=== PATIENT | female | born 1980 | race Caucasian/White ===

== ENCOUNTER 2016-12-25 01:54 | Emergency (ER) | payer OTHER ==
[~2016-12-25] VITALS: Ht 177.8 cm; Wt 73.6 kg
[2016-12-25] MEDS ORDERED: CHEW500C2 PO (02:08)
[2016-12-25] MEDS ORDERED: MONOTAB PO (02:08)
[2016-12-25] MEDS ORDERED: VITA100L PO (02:08)
[2016-12-25] MEDS ORDERED: MULTTAB57 PO (02:08)
[2016-12-25] MEDS ORDERED: VITA-112 PO (02:08)
[2016-12-25] MEDS ORDERED: NS 1,000 ML IV ONE (02:45)
[2016-12-25] MEDS ORDERED: MORPHINE 4 MG/ML 1ML SYRINGE IV ONE (02:45)
[2016-12-25] MEDS ORDERED: KETOROLAC 30 MG/ML VIAL (J1885) IV ONE (02:45)
[2016-12-25] MEDS ORDERED: ONDANSETRON 4MG/2ML VIAL (J2405) IV ONE (03:00)
[2016-12-25 03:01] LABS: BASO % 0.5 % (0.0-1.0); EOS # 0.1 10^3/uL (0.0-0.50); EOS % 0.9 % (0.0-3.0); IMMATURE GRANULOCYTE % 0.5 % (0-0); LYMPH # 1.1 10^3/uL (1.5-4.5); LYMPH % 12.5 % (24.0-44.0); MEAN CORPUSCULAR HEMOGLOBIN 30.9 pg (27.0-33.0); MEAN CORPUSCULAR HGB CONC 33.5 g/dl (32.0-36.5); MEAN CORPUSCULAR VOLUME 92.2 fl (80.0-96.0); MONO # 0.4 10^3/uL (0.0-0.8); MONO % 4.3 % (0.0-5.0); NEUTROPHILS # 7.2 10^3/uL (1.8-7.7); NEUTROPHILS % 81.3 % (36.0-66.0); PLATELET COUNT, AUTOMATED 255 10^3/uL (150-450); RED CELL DISTRIBUTION WIDTH 12.4 % (11.5-14.5); WHITE BLOOD COUNT 8.8 10^3/uL (4.0-10.0)
[2016-12-25 03:31] LABS: ALBUMIN 3.7 GM/DL (3.2-5.2); ALBUMIN/GLOBULIN RATIO 0.97 (1.00-1.93); ALKALINE PHOSPHATASE 78 U/L (45-117); ALT/SGPT 28 U/L (12-78); ANION GAP 5 MEQ/L (8-16); AST/SGOT 16 U/L (15-37); BILIRUBIN,DIRECT 0.2 MG/DL (0.0-0.2); BILIRUBIN,TOTAL 0.6 MG/DL (0.2-1.0); BLOOD UREA NITROGEN 13 MG/DL (7-18); CALCIUM LEVEL 8.5 MG/DL (8.5-10.1); CARBON DIOXIDE LEVEL 30 MEQ/L (21-32); CHLORIDE LEVEL 102 MEQ/L (98-107); CREATININE FOR GFR 0.76 MG/DL (0.55-1.02); GLOMERULAR FILTRATION RATE > 60.0 (>60); GLUCOSE, FASTING 136 MG/DL (70-105); POTASSIUM SERUM 3.6 MEQ/L (3.5-5.1); SODIUM LEVEL 137 MEQ/L (136-145); TOTAL PROTEIN 7.5 GM/DL (6.4-8.2)
[2016-12-25] MEDS ORDERED: HYDROmorphone HCL 1 MG/ML SYRINGE (J1170) IV ONE (03:45)
[2016-12-25 03:52] LABS: CONTROL LINE HCG INT CTR LINE PRESENT
[2016-12-25] MEDS ORDERED: ISOVUE-370 76% 100ML VIAL (Q9967) As Ordered ONE (04:00)
--- NOTE | 2016-12-25 05:00 | REPUSA ---
CLINICAL HISTORY: Abdominal pain. TECHNIQUE: Multiple axial, sagittal and coronal CT images were obtained through the abdomen and pelvi s after administration of intravenous contrast material. COMMENTS: Scattered mildly enhancing hepatic lesions with the largest measuring 1.3 cm. Probably hemangiomas. Diffuse apparent thickening of the proximal sigmoid colon. Mildly prominent left extrarenal pelvis. Mild diffuse thickening of the wall of the bladder. The remaining liver is of uniform attenuation without mass or defect. There is no intra or extrahepatic biliary ductal dilatation. The spleen is normal. The gallbladder is within normal limits. The pancreas is of normal contour and attenuation characteri stics. There is no evidence of adrenal mass. Both kidneys demonstrate prompt and equal nephrograms. The kidneys are normal in size, shape and conf iguration. There is no evidence of renal or ureteral mass. No renal or ureteral calculi are identifie d. There is no hydroureter or hydronephrosis. No evidence for appendicitis. There is no bowel wall thickening. No evidence for small or large raj l obstruction. There is no evidence of abdominal ascites or lymphadenopathy. There is no evidence of intrinsic or extrinsic bladder mass. There is no pelvic ascites or lymphadeno deepa. Images of the lung bases show no evidence of pleural or parenchymal mass. There are no pleural effusi ons. The bony structures are free of lytic or blastic lesions. Moderate large bowel fecal stasis. IMPRESSION: Scattered, mildly enhancing hepatic lesions. Probably hemangiomas. Apparent thickening of the proximal sigmoid colon. Other dissection, spasm versus mild colitis. Mild diffuse thickening of the wall of the bladder. Underdistention versus mild cystitis. Thank you for your kind referral of this patient.
[2016-12-25 07:58] VITALS: BP 113/55
[2016-12-25] MEDS ORDERED: DULC5TAB PO (08:25)
[2016-12-25] MEDS ORDERED: BENT10CA PO (08:25)
--- NOTE | 2016-12-25 09:55 | ED PDOC ---
Post-Departure Follow-Up radiology report faxed to [facility] Jenna Cortez MD Dec 25, 2016 09:55
[2017-01-15] MEDS ORDERED: VITA1TAB48 PO (16:21)
[2017-01-15] MEDS ORDERED: [UNRECOGNIZED DRUG - OTHER] PO (16:21)
== END 2016-12-25 08:55 | disposition home or self-care (01) ==
LOC: M ED 01:54
DX: K59.00 Constipation, unspecified (principal); Z79.3 Long term (current) use of hormonal contraceptives; Z88.0 Allergy status to penicillin; Z88.1 Allergy status to other antibiotic agents
CPT/HCPCS: 36415; 74177; 80048; 80076; 81001; 83690; 84703; 85025; 87086; 87210; 87491; 87591; 96374; 96375; 99283; J1170; J1885; J2405; Q9967

== ENCOUNTER → 2016-12-28 | Outpatient (REF) | payer OTHER ==
[~2016-12-28] MED LIST: BENT10CA PO; CHEW500C2 PO; DULC5TAB PO; IBUP1TAB7 PO; MONOTAB PO; MULTTAB57 PO; PERCOCET PO; VITA-112 PO; VITA100L PO; VITA1TAB48 PO; [UNRECOGNIZED DRUG - OTHER] PO
== END ==
LOC: M SFHCLERA 11:50
PROVIDERS: ATTEND Family Medicine
DX: Z86.32 Personal history of gestational diabetes (principal)

== ENCOUNTER → 2017-01-02 | Outpatient (CLI) | payer OTHER ==
--- NOTE | 2017-01-02 17:15 | REP ---
PELVIC ULTRASOUND: Real-time sonographic evaluation of the pelvis performed utilizing transabdominal and endovaginal technique. The bladder measures 10.8 x 6.0 x 11.5 cm. Uterus measures 9.1 x 3.9 x 5.7 cm. Endometrial stripe measures 4 mm. Ovaries appear normal in size and echotexture, the right ovary measuring 3.4 x 1.4 x 2.3 cm and left ovary 3.0 x 1.8 x 2.1 cm. Normal sized follicles are seen in each ovary. However, there is a cystic mass inferiorly in the left adnexa at the level of the lower uterine segment and cervix. It is predominantly cystic with a soft tissue rind. It measures 4.9 x 3.9 x 4.4 cm. No free fluid is seen. IMPRESSION: Cystic mass inferior left adnexal region. Maximum diameter is 4.9 x 3.9 x 4.4 cm. It does not appear to be connected with the left ovary. Etiology is uncertain. Differential diagnosis would include benign and malignant cystic adnexal masses. Further evaluation may be made with MRI. Signed by Guanako Che MD 01/03/2017 04:32 P
== END ==
LOC: M LRY 14:05
PROVIDERS: ATTEND Family Medicine
DX: R10.9 Unspecified abdominal pain (principal)

== ENCOUNTER 2017-01-22 08:56 | Day surgery (SDC) | payer OTHER ==
[~2017-01-22] VITALS: Ht 177.8 cm; Wt 73.8 kg
[~2017-01-22 08:56] MED LIST changes: -IBUP1TAB7 PO; -PERCOCET PO
[2017-01-22] MEDS ORDERED: LR 1,000 ML IV ONE (09:15)
[2017-01-22 09:28] LABS: MEAN CORPUSCULAR HEMOGLOBIN 29.7 pg (27.0-33.0); MEAN CORPUSCULAR HGB CONC 31.6 g/dl (32.0-36.5); MEAN CORPUSCULAR VOLUME 93.7 fl (80.0-96.0); PLATELET COUNT, AUTOMATED 287 10^3/uL (150-450); RED CELL DISTRIBUTION WIDTH 12.4 % (11.5-14.5)
[2017-01-22 09:52] LABS: CONTROL LINE HCG INT CTR LINE PRESENT
[2017-01-22] MEDS ORDERED: BUPIVACAINE HCL 0.25% 30 ML VIAL As Ordered ONE (10:43)
[2017-01-22] MEDS ORDERED: IBUP1TAB7 PO (11:13)
[2017-01-22] MEDS ORDERED: PERCOCET PO (11:15)
[2017-01-22] MEDS ORDERED: fentaNYL 250 MCG/5 ML INJECTION (J3010) As Ordered ONE (11:17)
[2017-01-22] MEDS ORDERED: LIDOCAINE 2% INJ 100 MG/5 ML SDV (FOR ANES.) As Ordered ONE (11:17)
[2017-01-22] MEDS ORDERED: dexameTHASONE 4 MG/ML 1ML VIAL (J1100) As Ordered ONE (11:17)
[2017-01-22] MEDS ORDERED: PROPOFOL 200 MG/20 ML VIAL As Ordered ONE (11:17)
[2017-01-22] MEDS ORDERED: MIDAZOLAM INJ 2 MG/2 ML VIAL (J2250) As Ordered ONE (11:17)
[2017-01-22] MEDS ORDERED: ROCURONIUM BROMIDE 50 MG/5 ML VIAL/SYRINGE As Ordered ONE ×2 (11:17→11:24)
[2017-01-22] MEDS ORDERED: KETOROLAC 60 MG/2 ML VIAL (J1885) As Ordered ONE (11:32)
[2017-01-22] MEDS ORDERED: ONDANSETRON 4MG/2ML VIAL (J2405) As Ordered ONE ×2 (11:32→16:39)
[2017-01-22] MEDS ORDERED: GLYCOPYRROLATE INJ 0.2 MG/ML 2 ML VIAL As Ordered ONE (11:33)
[2017-01-22] MEDS ORDERED: NEOSTIGMINE 10 MG/10 ML VIAL (J2710) As Ordered ONE (11:33)
[2017-01-22] MEDS ORDERED: METOCLOPRAMIDE INJ 10MG/2ML VIAL (J2765) IV PRN ×3 (12:45→14:15)
[2017-01-22] MEDS ORDERED: LR 1,000 ML IV SCH ×2 (12:45→14:15)
[2017-01-22] MEDS: MEPERIDINE INJ 25 MG/ML VIAL (J2175) IV PRN ×2 (12:50→12:55)
[2017-01-22] MEDS: ONDANSETRON 4MG/2ML VIAL (J2405) IV PRN ×2 (12:50→16:45)
[2017-01-22] MEDS: fentaNYL 100 MCG/2 ML INJECTION (J3010) IV PRN ×8 (12:50→13:25)
[2017-01-22] MEDS ORDERED: PERCOCET 5MG/325MG TAB PO PRN ×2 (13:00→14:15)
[2017-01-22] MEDS: PERCOCET 5MG/325MG TAB PO PRN ×2 (13:10→13:44)
[2017-01-22] MEDS ORDERED: PERCOCET 5MG/325MG TAB As Ordered ONE (13:50)
[2017-01-22] MEDS ORDERED: METOCLOPRAMIDE INJ 10MG/2ML VIAL (J2765) As Ordered ONE ×2 (13:58→20:57)
[2017-01-22] MEDS ORDERED: ONDANSETRON 4MG/2ML VIAL (J2405) IV PRN (14:15)
[2017-01-22] MEDS ORDERED: MEPERIDINE INJ 25 MG/ML VIAL (J2175) IV PRN (14:15)
[2017-01-22] MEDS ORDERED: fentaNYL 100 MCG/2 ML INJECTION (J3010) IV PRN (14:15)
--- NOTE | 2017-01-22 15:35 | RO ---
DATE OF PROCEDURE: 01/22/2017 PREOPERATIVE DIAGNOSIS: Right ovarian cyst. POSTOPERATIVE DIAGNOSES: 1. Left tubal endometrioma. 2. Endometriosis. PROCEDURES PERFORMED: 1. Laparoscopic left tubal cystectomy. 2. Partial salpingectomy. 3. Fulguration of endometriosis. SURGEON: Ledy Can MD [employer]EARCH LEAD: Dennys Rogers MD ANESTHESIA: General endotracheal anesthesia. ESTIMATED BLOOD LOSS: Was 10 mL. INTRAVENOUS FLUIDS: 1600 mL of lactated Ringer solution. URINE OUTPUT: Was 450 mL. SPECIMENS: Left tubal endometrioma with partial left fallopian tube specimen. OPERATIVE FINDINGS: Patient with densely adhere left tubal endometrioma in the posterior cul-de-sac adhesed to the Marta and part of the large bowel. There was also several areas of endometriosis along the uterosacral ligaments and on the left uterosacral ligament. PREOPERATIVE ANTIBIOTICS: None. DESCRIPTION OF OPERATION: After informed consent was obtained and written content was reviewed, the patient was brought to the operating room where general endotracheal anesthesia was undertaken. She was then placed in lithotomy position and was prepped and draped in normal sterile fashion. Time-out in operating room was then performed identifying the patient, the procedure to be performed, as well as drug allergies. A bivalve speculum was placed revealing the cervix. The anterior lip of the cervix was grasped with a single-tooth tenaculum . Hulka tenaculum was then advanced to the cervical os to the level of the fundus for me to manipulate the uterus. The single-tooth tenaculum and speculum was removed. A Romero catheter was placed and set to gravity. Gloves were changed. Attention was then turned to the patient's abdomen, where a 0.25% Marcaine was infused in the umbilical region. This area was incised. An 11 trocar sleeve was advanced through this incision. Intraabdominal placement was then confirmed. A pneumoperitoneum was then obtained with CO2 gas. Two additional port sites were placed in the left and right side of the abdomen. Each on of these areas were infused with 0.25% Marcaine and a 5 mm trocar and sleeve was advanced through each one of these incisions under direct visualization. Next, the abdomen was then surveyed with the above-noted finding. Using a series of blunt and hydrodissection, the endometrioma was then dissected off at the posterior cul-de-sac and once it was released from the epiploic appendages. Once the endometrium was released, using Harmonic Chapito scalpel device, fallopian tube was then transected just above the fimbria with good hemostasis noted. The specimen was then placed inside an Endo Catch bag. It was brought to the level of the incision where it was then drained and removed intact. Surgical sites were inspected and noted to be hemostatic. The umbilical port site was then closed using a Maurice-Mariana system using #0 Vicryl. Trocars were removed, and the skin incisions of all three port sites were closed using #4-0 Monocryl and was dressed with Dermabond. The Hulka tenaculum as well as the Romero catheter was then removed. The patient was then taken out of lithotomy position, was awakened from anesthesia and taken to recovery in stable condition. Counts were correct.
[2017-01-22] MEDS ORDERED: KETOROLAC 30 MG/ML VIAL (J1885) IV SCH (19:00)
[2017-01-22 21:39] VITALS: BP 96/47
== END 2017-01-22 21:41 | disposition home or self-care (01) ==
LOC: M SDC 08:56
PROVIDERS: ATTEND Obstetrics & Gynecology
DX: N80.2 Endometriosis of fallopian tube (principal); N80.3 Endometriosis of pelvic peritoneum; Z88.0 Allergy status to penicillin; Z88.1 Allergy status to other antibiotic agents; Z79.3 Long term (current) use of hormonal contraceptives
CPT/HCPCS: 36415; 58661; 58662; 84703; 85027; 86850; 86900; 86901; 88305; J1100; J1885; J2175; J2250; J2405; J2710; J2765; J3010